=== PATIENT | female | born 2000 | race Caucasian/White ===

== ENCOUNTER 2022-02-21 20:32 | Emergency (ER) | payer OTHER, SELFPAY ==
[2022-02-21 21:33] VITALS: BP 114/54; PULSE 137; RESP 20; TEMP 37.2; O2SAT 97; BMI 39.5
--- NOTE | 2022-02-22 00:06 | CRLHL7_ITS ---
For Patients: As a result of the Cures Act, medical imaging exams and procedure reports are released immediately into your electronic medical record. You may view this report before your referring provider. If you have questions, please contact your health care provider. INDICATION: Cough, tachycardia TECHNIQUE: Chest 2 views. COMPARISON: None FINDINGS: Cardiovascular and mediastinum: Heart size and vasculature are normal in caliber and appearance. Mediastinum is within normal limits. Lungs and pleural spaces: Lungs are clear. No sign of infiltrate or mass. No sign of pleural effusion. No pneumothorax. Bones and soft tissues: No significant findings. IMPRESSION: No sign of acute disease. Dictated by Kalina Zapien MD @ 02/22/2022 1:17:48 AM (Electronically Signed)
[2022-02-22 00:09] LABS: PCR FLU A POSITIVE PCR FLU A (Negative); PCR FLU B Negative PCR FLU B (Negative); PCR RSV Negative PCR RSV (Negative)
[2022-02-22 00:12] LABS: SARS PCR* Negative SARS-CoV-2 (Negative)
--- NOTE | 2022-02-22 00:36 | ED.GENADULT ---
HPI - General Adult General Time Seen by Provider: 00:36 Date Seen: 02/22/22 Chief complaint: Cough Stated complaint: Possible Covid or Flu Time Seen by Provider: 02/22/22 00:22 Source: patient and RN notes reviewed Mode of arrival: ambulatory Limitations: no limitations History of Present Illness HPI narrative: 21-year-old female who comes in with cough, body aches, sinus congestion starting yesterday. She has not taken anything for her symptoms. She came in because her work wanted her to get tested for influenza and COVID. No nausea, vomiting, diarrhea. Related Data Allergies Allergy/AdvReac Type Severity Reaction Status Date / Time No Known Drug Allergies Allergy Verified 11/26/21 13:54 Review of Systems Status of ROS: Reports: 10 or more systems reviewed and unremarkable except as noted in History and below Exam Const: Vital Signs, click to edit/add: Vital Signs - 24 hr 02/21/22 21:33 Temperature 99.0 F Pulse Rate [Pulse Oximeter] 137 H Respiratory Rate 20 Blood Pressure [Ri ght Upper Arm] 114/54 L Pulse Oximetry 97 Oxygen Delivery Me thod Room Air Documenting provider has reviewed patient's vital signs: yes Common normals: no apparent distress, oriented x3, alert and well nourished HENMT: Common normals: normocephalic, head/scalp atraumatic, external ears normal and external nose normal Head and scalp: normocephalic and atraumatic Nose: external nose normal External ear: external ears normal Eye: Common normals: PERRL and conjunctivae normal Conjunctiva: conjunctiva(e) normal Pupil: PERRL Neck & C-Spine: Common normals: full ROM, no lymphadenopathy and supple Chest: Common normals: palpation of chest normal Resp: Common normals: normal respiratory effort and clear to auscultation bilaterally Auscultation: clear to auscultation bilaterally Cardio: Common normals: regular rate, regular rhythm and no murmurs Rate: regular rate Rhythm: regular rhythm GI: Common normals: Normal to inspection, nondistended, normoactive bowel sounds present, soft to palpation and non-tender Palpation: soft : Common normals: no CVA tenderness Bladder/kidney exam: no CVA tenderness Back & Pelvis: Common normals: no CVA tenderness and thoracic and lumbar spine normal to inspection Extremity: Common normals: normal to inspection, full ROM and no pedal edema Neuro: Common normals: oriented x3, CN's II-XII intact bilaterally and no focal motor deficits Sensorium/orientation: alert Psych: Common normals: mental status grossly normal Skin: Common normals: no rashes or lesions noted General skin exam: no rashes or lesions noted Course Course Hospital Course: Patient seen examined, prior records are reviewed. Patient presents today with upper respiratory symptoms and body aches, starting yesterday. On initial triage pulse is recorded at 137, however in the room she is in the 90s. Lungs are clear with no hypoxia. Influenza a positive. Discussed symptomatic treatment for this, patient is stable for discharge. Vital Signs Vital signs: Initial Vital Signs Temperature 99.0 F 02/21/22 21:33 Temperature Source Temporal Artery Scan 02/21/22 21:33 Pulse Rate 137 H 02/21/22 21:33 Pulse Rhythm 02/21/22 21:33 Respiratory Rate 20 02/21/22 21:33 Blood Pressure 114/54 L 02/21/22 21:33 Blood Pressure Mean 74 02/21/22 21:33 Pulse Oximetry 97 02/21/22 21:33 Oxygen Delivery Method 02/21/22 21:33 Vital Signs Temperature 99.0 F 02/21/22 21:33 Pulse Rate 137 H 02/21/22 21:33 Respiratory Rate 20 02/21/22 21:33 Blood Pressure 114/54 L 02/21/22 21:33 Pulse Oximetry 97 02/21/22 21:33 Oxygen Delivery Method 02/21/22 21:33 Temperature 99.0 F 02/21/22 21:33 Pulse Rate 137 H 02/21/22 21:33 Respiratory Rate 20 02/21/22 21:33 Blood Pressure 114/54 L 02/21/22 21:33 Pulse Oximetry 97 02/21/22 21:33 Oxygen Delivery Method 02/21/22 21:33 Medical Decision Making Medical Records Medical records reviewed: Yes I reviewed the patient's medical records Lab Data Lab results reviewed: Yes I reviewed the patient's lab results Labs: Lab Results 02/21/22 Range/Units 23:26 SARS-CoV-2 (PCR) Negative SARS-CoV-2 (Negative) Influenza Type A (PCR) POSITIVE PCR FLU A A (Negative) Influenza Type B (PCR) Negative PCR FLU B (Negative) RSV (PCR) Negative PCR RSV (Negative) Discharge Plan Discharge Clinical Impression: Influenza A Patient Disposition: Home, Self-Care Condition: Stable Instructions: Influenza (DC) Additional Instructions: Tylenol and ibuprofen for pain, fever Make sure your getting plenty of fluids and plenty of rest Activity Level: No Restrictions Discharge Diet: Regular Follow Up/Referrals: Provider,Not a Local [Primary Care Provider] - Stand Alone Forms: [facility] Info Instructions
[2022-02-22 00:50] VITALS: BP 125/78; PULSE 91; RESP 20; TEMP 37.2; O2SAT 97
[2022-02-22 00:51] VITALS: BP 125/78; PULSE 91; RESP 20; TEMP 37.2
== END 2022-02-22 00:51 | disposition home or self-care (01) ==
LOC: ED 02-22 00:48
PROVIDERS: Emergency Provider Family Medicine; PCP Pediatrics
DX: J09.X2 Influenza due to identified novel influenza A virus with other respiratory manifestations (principal)
CPT/HCPCS: 71046; 87502; 87634; 87635; 99283; 99284

== ENCOUNTER 2023-06-20 18:13 | Emergency (ER) | payer OTHER, SELFPAY ==
[2023-06-20 18:21] VITALS: BP 126/57; PULSE 80; RESP 18; TEMP 36.6; O2SAT 95; BMI 37.2
--- NOTE | 2023-06-20 19:37 | ED.NURSE ---
patient left without signing refusal of services.
== END 2023-06-20 19:37 | disposition left against medical advice (07) ==
PROVIDERS: PCP Pediatrics
DX: Z53.21 Procedure and treatment not carried out due to patient leaving prior to being seen by health care provider (principal)

== ENCOUNTER 2024-01-06 18:48 | Emergency (ER) | payer SELFPAY ==
[2024-01-06 18:57] VITALS: BP 114/70; PULSE 89; RESP 20; TEMP 36.7; O2SAT 99; BMI 32.6
--- NOTE | 2024-01-06 19:20 | ED.SKABFB ---
HPI - Skin/Abscess/Foreign Bdy General Chief complaint: Skin/Abscess/Foreign Body Stated complaint: sores on back and right foot Time Seen by Provider: 01/06/24 18:52 History of Present Illness HPI narrative: This patient comes in with a cutaneous abscess in her right upper back that has been present for several days. She does not report any drainage but reports that it is become more painful. She also incidentally indicates a lump in the medial aspect of her right foot. She states that it bothers her if she walks for extended amount of time. She does not report any fevers and otherwise is in good health. Related Data Previous Rx's ?Medication ?Instructions ?Recorded cephalexin 500 mg capsule 500 mg PO TID 5 days #15 caps 01/06/24 Allergies Allergy/AdvReac Type Severity Reaction Status Date / Time No Known Drug Allergies Allergy Verified 01/06/24 18:59 Review of Systems Status of ROS: Reports: 10 or more systems reviewed and unremarkable except as noted in History and below Narrative: Constitutional: No fevers, no weight gain or loss. Eyes: No discharge. No vision changes. HENT: No congestion, no sore throat, no ear pain. Cardiovascular: No chest pain, no palpitations. Respiratory: No shortness of breath, no wheezes, no cough. Gastrointestinal: No abdominal pain, no vomiting, no diarrhea. Genitourinary: No dysuria, no hematuria. Musculoskeletal: Normal range of motion. Skin: No rashes, no pruritis. Cutaneous abscess in the right upper back. Neurological: No dizziness, weakness, sensory change, speech change. Endo/Heme/Allergies: No bruising or bleeding. No polydipsia. Pysch: no suicidality, no anxiety, no insomnia. All other systems reviewed and are negative. [facility] Medical History (Updated 01/06/24 @ 19:27 by Ruddy Constantino MD) OCD (obsessive compulsive disorder) ?F42.9 - Obsessive-compulsive disorder, unspecified (ICD-10) Menorrhagia ?N92.0 - Excessive and frequent menstruation with regular cycle (ICD-10) ADHD (attention deficit hyperactivity disorder) ?F90.9 - Attention-deficit hyperactivity disorder, unspecified type (ICD-10) Surgical History No significant past surgical history Social History Smoking Status: Never smoker Do you use any of these nicotine containing products: Vaping Products Second hand tobacco smoke exposure: No How often do you have a drink containing alcohol: never How often do you have six or more drinks on one occasion: Never AUDIT-C Alcohol total score: 0 Non-prescribed substance use: denies use Exam Narrative: Exam Narrative: Constitutional: Well-developed, well-nourished, no acute distress. HEENT: Normocephalic, atraumatic. Neck: Normal range of motion. Nontender. Supple. Heart: Regular. No murmurs. Normal rate. Intact distal pulses. Lungs: Clear to auscultation. No chest discomfort. No wheezes, rhonchi, or rales. Abdomen: Normal bowel sounds. Nontender. No rebound tenderness. Genitalia: Deferred. Back: No midline tenderness. Normal range of motion. Extremities: Normal range of motion. No injury. Right foot has a well-defined cystic structure on the medial aspect which is about 1.5 cm in diameter. It is movable, not fixed. Skin: Intact. No rash. Warm. No erythema or pallor. Right upper back has a area of erythema with mild swelling typical of a cutaneous abscess. It measures about 2.5 cm in diameter. Neurologic: No altered sensation. No weakness. Alert and oriented. Psychiatric: No suicidality. No anxiety or depression. No insomnia. Nursing notes and vitals signs are reviewed. Const: Vital Signs, click to edit/add: Vital Signs - 24 hr 01/06/24 18:57 Temperature 98.0 F Pulse Rate [Right Pulse Oximeter] 89 Respiratory Rate 20 Blood Pressure [Ri ght Upper Arm] 114/70 Pulse Oximetry 99 Oxygen Delivery Me thod Room Air Course Vital Signs Vital signs: Initial Vital Signs Temperature 98.0 F 01/06/24 18:57 Temperature Source Temporal Artery Scan 01/06/24 18:57 Pulse Rate 89 01/06/24 18:57 Respiratory Rate 20 01/06/24 18:57 Blood Pressure 114/70 01/06/24 18:57 Blood Pressure Mean 84 01/06/24 18:57 Blood Pressure Position Sitting 01/06/24 18:57 Pulse Oximetry 99 01/06/24 18:57 Oxygen Delivery Method Room Air 01/06/24 18:57 Vital Signs Temperature 98.0 F 01/06/24 18:57 Pulse Rate 89 01/06/24 18:57 Respiratory Rate 20 01/06/24 18:57 Blood Pressure 114/70 01/06/24 18:57 Pulse Oximetry 99 01/06/24 18:57 Oxygen Delivery Method Room Air 01/06/24 18:57 Temperature 98.0 F 01/06/24 18:57 Pulse Rate 89 01/06/24 18:57 Respiratory Rate 20 01/06/24 18:57 Blood Pressure 114/70 01/06/24 18:57 Pulse Oximetry 99 01/06/24 18:57 Oxygen Delivery Method Room Air 01/06/24 18:57 MDM - Skin/Abscess/Foreign Bdy MDM Narrative Medical decision making narrative: I used bedside ultrasound to evaluate these 2 lesions. The right upper back has a small amount of fluid but it is appearing to be loculated and my assessment would be that it may not yield a lot of fluid if attempting to drain it. The right foot has a cystic structure that would benefit from drainage. The patient agreed to this. After cleansing the area of her right foot with alcohol swab I used lidocaine with epinephrine to anesthetize the immediate area where I used a 18 gauge needle to inject into the cystic structure. I drained approximately 1.5 mL of fluid to completely flatten it. The patient did receive a prescription for 5 days of Keflex to treat her cutaneous abscess on her back. Discharge Plan Discharge Clinical Impression: Abscess of skin or subcutaneous tissue Patient Disposition: Home, Self-Care Condition: Improved Additional Instructions: Take medication as prescribed. Follow up with MD or return if worsening. Prescriptions: New cephalexin 500 mg capsule 500 mg PO TID 5 Days Qty: 15 0RF Follow Up/Referrals: Manoj Maki MD [Primary Care Provider] - Stand Alone [facility] Inst[facility] Procedures Ultrasound Other exam #1: Anatomical areas examined: Cutaneous abscess in the right upper back. A cystic structure on the righ Indications: Assess for opportunity to drain either of these structures. Exam type: focused emergency ultrasound Description/findings: Right upper back has a cutaneous abscess with small amount of fluid that is not sizable enough for drainage. The right foot on the inner aspect has a cystic structure that is well-defined and full of fluid. This structure would benefit from drainage. Impression: Cutaneous abscess on the back and a cystic structure on the right foot.
[2024-01-06 20:01] VITALS: BP 118/68; PULSE 85; RESP 20; TEMP 36.7; O2SAT 99
[2024-01-06 20:02] VITALS: BP 118/68; PULSE 85; RESP 20; TEMP 36.7
== END 2024-01-06 20:02 | disposition home or self-care (01) ==
PROVIDERS: Emergency Provider Emergency Medicine Emergency Medical Services; PCP Pediatrics
DX: L02.212 Cutaneous abscess of back [any part, except buttock and flank] (principal)
CPT/HCPCS: 10060; 76705; 99283; 99284

== ENCOUNTER 2024-02-01 22:45 | Emergency (ER) | payer OTHER, SELFPAY ==
--- NOTE | 2024-02-01 22:53 | CRLHL7_ITS ---
For Patients: As a result of the Century Cures Act, medical imaging exams and procedure reports are released immediately into your electronic medical record. You may view this report before your referring provider. If you have questions, please contact your health care provider. INDICATION: Trauma. TECHNIQUE: Right hand radiographs, 3 views. COMPARISON: None. FINDINGS: No acute fractures or dislocation. The joint spaces are preserved. The scaphoid appears intact. No significant soft tissue edema or radiopaque foreign bodies. IMPRESSION: No acute fractures or dislocation. Dictated by Paul Strickland MD @ 02/01/2024 11:25:21 PM (Electronically Signed)
[2024-02-01 22:54] VITALS: BP 118/80; PULSE 89; RESP 18; TEMP 36.7; O2SAT 99; BMI 30.7
--- NOTE | 2024-02-01 23:54 | ED_ITS ---
HPI - General Adult General Date Seen: 02/01/24 Chief complaint: Extremity Pain/Injury, Upper Stated complaint: slammed R hand in car door Time Seen by Provider: 02/01/24 23:54 History of Present Illness HPI narrative: This is a 23 he 3-year-old female presenting to the ER today with her boyfriend for evaluation of an injury to her right hand and thumb. She was at work this evening. She was closing the door under truck. The door was sees by strong shree of wind and then slammed close before she get get her and of the way. She describes that her thumb was hyperextended and ever since then she has had pain involving the entire right thumb into the thenar eminence and into the radial border of the wrist. She was told by her employer to come to the ER to get evaluated, get a splint, and get a work note. The injury happened at about 3:00 p.m. this afternoon but she did get off work until 5. She then went to another ER with another family member for a different problem and then presented to the ER here in [place] later this evening. She is having pain in her thumb and thenar eminence and wrist. No numbness. She is not able to move her thumb because she has pain with attempted movement. No swelling. No bruising. Related Data Home Medications ?Medication ?Instructions ?Recorded ?Confirmed No Known Home Medications 02/01/24 02/01/24 Allergies Allergy/AdvReac Type Severity Reaction Status Date / Time No Known Drug Allergies Allergy Verified 02/01/24 22:56 [facility] Medical History (Updated 02/02/24 @ 00:09 by Marty Keenan MD) OCD (obsessive compulsive disorder) ?F42.9 - Obsessive-compulsive disorder, unspecified (ICD-10) Menorrhagia ?N92.0 - Excessive and frequent menstruation with regular cycle (ICD-10) ADHD (attention deficit hyperactivity disorder) ?F90.9 - Attention-deficit hyperactivity disorder, unspecified type (ICD-10) Surgical History No significant past surgical history Social History Smoking Status: Never smoker Do you use any of these nicotine containing products: Vaping Products Second hand tobacco smoke exposure: No How often do you have a drink containing alcohol: never How often do you have six or more drinks on one occasion: Never AUDIT-C Alcohol total score: 0 Non-prescribed substance use: denies use Exam Narrative: Exam Narrative: Constitutional: Appears well-developed and well-nourished. Active. Non-toxic appearing. Polite HENT: Head: Atraumatic. No signs of injury. Nose: No nasal discharge. Mouth/Throat: Mucous membranes are moist. Pharynx is normal. Tonsils symmetric. Uvula midline. Airway patent. Eyes: Conjunctivae normal and EOM are normal. Pupils are equal, round, and reactive to light. Right eye exhibits no discharge. Left eye exhibits no discharge. No icterus. Neck: Normal range of motion. Neck supple. No adenopathy. No stridor. Cardiovascular: Normal rate and regular rhythm. Brisk capillary refill in her injured thumb and in her fingers. Pulmonary/Chest: Effort normal. No stridor. No respiratory distress. Musculoskeletal: Normal except for her right hand and wrist. Right upper extremity: Clavicle, shoulder, humerus, biceps, triceps are nontender. Elbows nontender. Forearm is nontender. Normal pronation and supination. Wrist: Normal inspection. No bruising. No swelling. No snuffbox tenderness. She is diffusely tender over the film including the thenar eminence, MCP, PIP, and the phalanges of the thumb. No swelling. She is not able to range her thumb especially the MCP because of pain. Difficult to localize any exact source of pain in her hand. Bed she does have a lot of tenderness when I try to range her MCP joint and stress her ulnar collateral ligament. Suspicious for possible ski or some with the described thumb hyperextension mechanism. Body the hand, 2nd, 3rd, 4th, 5th digits are nontender.. Neurological: Alert. Normal strength. No cranial nerve deficit or sensory deficit. Coordination normal. GCS eye subscore is 4. GCS verbal subscore is 5. GCS motor subscore is 6. Skin: Skin is warm. No rash noted. Const: Vital Signs, click to edit/add: Vital Signs - 24 hr 02/01/24 22:54 02/02/24 00:21 Temperature 98.1 F 98.1 F Pulse Rate [Right Pulse Oximeter] 89 81 Respiratory Rate 18 18 Blood Pressure [Ri ght Upper Arm] 118/80 121/79 Pulse Oximetry 99 99 Oxygen Delivery Me thod Room Air Room Air Course Vital Signs Vital signs: Initial Vital Signs Temperature 98.1 F 02/01/24 22:54 Temperature Source Temporal Artery Scan 02/01/24 22:54 Pulse Rate 89 02/01/24 22:54 Respiratory Rate 18 02/01/24 22:54 Blood Pressure 118/80 02/01/24 22:54 Blood Pressure Mean 92 02/01/24 22:54 Blood Pressure Position Sitting 02/01/24 22:54 Pulse Oximetry 99 02/01/24 22:54 Oxygen Delivery Method Room Air 02/01/24 22:54 Vital Signs Temperature 98.1 F 02/01/24 22:54 Pulse Rate 89 02/01/24 22:54 Respiratory Rate 18 02/01/24 22:54 Blood Pressure 118/80 02/01/24 22:54 Pulse Oximetry 99 02/01/24 22:54 Oxygen Delivery Method Room Air 02/01/24 22:54 Temperature 98.1 F 02/02/24 00:21 Pulse Rate 81 02/02/24 00:21 Respiratory Rate 18 02/02/24 00:21 Blood Pressure 121/79 02/02/24 00:21 Pulse Oximetry 99 02/02/24 00:21 Oxygen Delivery Method Room Air 02/02/24 00:21 Medical Decision Making MDM Narrative Medical decision making narrative: 23-year-old previously healthy female presenting with a work related injury to right hand especially the right thumb and right wrist that occurred when she got her hand slammed in a truck door after the when took the door. She describes a hyperextension injury to the thumb. Clinical exam reveals diffuse tenderness. X-rays are negative for any acute fracture of the thumb or hand. Clinically I suspect she may have an ulnar collateral ligament to the MCP joint of the thumb, i.e. ski or some. Differential would also include other thumb sprain or contusion. Also consider possible nondisplaced fracture through the scaphoid bone. However pain really seems to me most localized to her thumb. Patient is placed into a thumb spica splint (prefabricated Velcro splint) here in the ER and will keep her thumb immobilized. Discussed with the patient that if this is simply a bruise it should heal over the next couple of days and if it is completely improved and no further treatment is necessary. However if she is not completely improved within 3-5 days she should recheck with [facility] for re-evaluation. She understands the need for follow-up. She is provided with a work note. Discussed analgesia. She will use ice, rest. Juax-[id number] medications. Declines opiate analgesics. Comfortable plan for discharge home with her boyfriend. Imaging Data XR hand: Attestation: I have reviewed the pertinent imaging results. My impression: no acute fracture Radiologist's impression: IMPRESSION: No acute fractures or dislocation. Discharge Plan Discharge Clinical Impression: Hyperextension injury of thumb Instructions: Skier's Thumb (ED) Additional Instructions: As we discussed, your x-rays look good tonight. No signs of any broken bones. However, I am concerned that you may have injured the ligaments in the joint at the base of your thumb. Please wear the thumb and wrist brace for the next 3-5 days unless you are completely improved. If you are not completely improved within 3-5 days, continue to protect your thumb in the brace and follow-up with the orthopedic clinic for re-evaluation. To make an ER follow-up appointment for the [facility], you can call [phone]. For pain you can use ibuprofen 600 mg or acetaminophen 1000 mg per dose every 6 hours as needed. You could also use an ice pack for 15 minutes every 3-4 hours to help reduce pain and swelling. Avoid activities that require grabbing or pinching with her right hand and thumb until you are completely healed or cleared to return to full duty by your orthopedic doctors. Prescriptions: No Action No Known Home Medications Follow Up/Referrals: Manoj Maki MD [Primary Care Provider] - Stand Alone Forms: [employer] Info Instructions
[2024-02-02 00:21] VITALS: BP 121/79; PULSE 81; RESP 18; TEMP 36.7; O2SAT 99
== END 2024-02-02 00:21 | disposition home or self-care (01) ==
PROVIDERS: Emergency Provider Emergency Medicine; PCP Pediatrics
DX: S66.201A Unspecified injury of extensor muscle, fascia and tendon of right thumb at wrist and hand level, initial encounter (principal); W23.0XXA Caught, crushed, jammed, or pinched between moving objects, initial encounter
CPT/HCPCS: 29125; 73130; 99282; 99283

== ENCOUNTER 2024-03-05 12:46 | Emergency (ER) | payer SELFPAY ==
[2024-03-05 12:51] VITALS: BP 113/70; PULSE 92; RESP 16; TEMP 35.8; O2SAT 96; BMI 32.6
--- NOTE | 2024-03-05 15:08 | ED_ITS ---
HPI - General Adult General Date Seen: 03/05/24 Chief complaint: Nausea/Vomiting Stated complaint: vomiting/diarrhea Time Seen by Provider: 03/05/24 15:07 History of Present Illness HPI narrative: 23-year-old female with a history of ADHD, OCD, recent thumb injury, presenting to the ER today with vomiting and diarrhea. Symptoms began yesterday with fairly abrupt onset of nausea and stomach ache. Yesterday around lunch she started having watery, yellowish vomiting and yellow diarrhea.. She has had multiple episodes of forceful emesis. She threw up at least 12 times yesterday. The for several emesis is were food. Then she had a few illnesses that were blood tinged. The last several emesis were back to being water and stomach acid. She had multiple episodes of yellow watery diarrhea. This morning she is having more nausea and vomiting but no blood. She is not having any fever. No recent travel. No recent antibiotics. No known suspicious food exposure. Her boyfriend is with her and is not sick. Related Data Previous Rx's ?Medication ?Instructions ?Recorded loperamide 2 mg capsule (Imodium 2 mg PO Q4H PRN loose stool #10 03/05/24 A-D) caps ondansetron 4 mg disintegrating 4 mg PO Q8H PRN nausea and 03/05/24 tablet vomiting #10 tabs Allergies Allergy/AdvReac Type Severity Reaction Status Date / Time Penicillins Allergy Severe throat Verified 03/05/24 12:58 swelling shut milkweed Allergy Severe swelling Uncoded 03/05/24 12:58 every where PFSH PFSH Medical History (Updated 03/05/24 @ 16:42 by Marty Keenan MD) OCD (obsessive compulsive disorder) ?F42.9 - Obsessive-compulsive disorder, unspecified (ICD-10) Menorrhagia ?N92.0 - Excessive and frequent menstruation with regular cycle (ICD-10) ADHD (attention deficit hyperactivity disorder) ?F90.9 - Attention-deficit hyperactivity disorder, unspecified type (ICD-10) Surgical History No significant past surgical history Social History Smoking Status: Never smoker Do you use any of these nicotine containing products: Vaping Products Second hand tobacco smoke exposure: No How often do you have a drink containing alcohol: never How often do you have six or more drinks on one occasion: Never AUDIT-C Alcohol total score: 0 Non-prescribed substance use: denies use Exam Narrative: Exam Narrative: Constitutional: Appears well-developed and well-nourished. Alert. Conversant. Non toxic. HENT: Head: Atraumatic. Nose: Nose normal. Mouth/Throat: Oral mucosa is clear and dry but not desiccated or cracked. no trismus. Pharynx normal. Tonsils symmetric. No tonsillar enlargement, erythema, or exudate. Eyes: Conjunctivae normal. EOM normal. Pupils equal, round, and reactive to light. No scleral icterus. Neck: Normal range of motion. Neck supple. No tracheal deviation present. Cardiovascular: Normal rate, regular rhythm. No gallop. No friction rub. No murmur heard. Symmetric radial artery pulses Pulmonary/Chest: Effort normal. No stridor. No respiratory distress. No wheezes. No rales. No rhonchi . No tenderness. Abdominal: Soft. Bowel sounds normal. No distension. No mass. No tenderness. No rebound. No guarding. No HSM Musculoskeletal: RUE: Normal range of motion. No deformity LUE: Normal range of motion. No deformity RLE: Normal range of motion. No edema. No deformity LLE: Normal range of motion. No edema. No deformity Neurological: Alert and oriented to person, place, and time. Normal strength. CN II-VII intact. No sensory deficit. GCS eye subscore is 4. GCS verbal subscore is 5. GCS motor subscore is 6. Normal coordination Skin: Skin is warm and dry. No rash noted. No pallor. Normal capillary refill. Psychiatric: Normal mood. Normal affect. Const: Vital Signs, click to edit/add: Vital Signs - 24 hr 03/05/24 12:51 Temperature 96.4 F L Pulse Rate [Pulse Oximeter] 92 Respiratory Rate 16 Blood Pressure [Ri ght Upper Arm] 113/70 Pulse Oximetry 96 Oxygen Delivery Me thod Room Air Course Course ED Course: Recheck nausea resolved after Zofran. Tolerating liquid. Says she is ?starving. ?. Still had a couple more liquidy diarrhea is but is comfortable with that. She knows it will stop. She is not having any abdominal pain. Vital Signs Vital signs: Initial Vital Signs Temperature 96.4 F L 03/05/24 12:51 Temperature Source Temporal Artery Scan 03/05/24 12:51 Pulse Rate 92 03/05/24 12:51 Respiratory Rate 16 03/05/24 12:51 Blood Pressure 113/70 03/05/24 12:51 Blood Pressure Mean 84 03/05/24 12:51 Blood Pressure Position Sitting 03/05/24 12:51 Pulse Oximetry 96 03/05/24 12:51 Oxygen Delivery Method Room Air 03/05/24 12:51 Vital Signs Temperature 96.4 F L 03/05/24 12:51 Pulse Rate 92 03/05/24 12:51 Respiratory Rate 16 03/05/24 12:51 Blood Pressure 113/70 03/05/24 12:51 Pulse Oximetry 96 03/05/24 12:51 Oxygen Delivery Method Room Air 03/05/24 12:51 Temperature 96.4 F L 03/05/24 12:51 Pulse Rate 92 03/05/24 12:51 Respiratory Rate 16 03/05/24 12:51 Blood Pressure 113/70 03/05/24 12:51 Pulse Oximetry 96 03/05/24 12:51 Oxygen Delivery Method Room Air 03/05/24 12:51 Medications Administered Medications: Generic Name Dose Route Start Last Admin Trade Name Freq PRN Reason Stop Dose Admin Loperamide HCl 4 mg 03/05/24 15:19 03/05/24 15:44 Loperamide Hcl 2 Mg Capsule PO 4 mg ONCE PRN Administration Discontinued Medications Generic Name Dose Route Start Last Admin Trade Name Freq PRN Reason Stop Dose Admin Ondansetron HCl 4 mg 03/05/24 15:19 03/05/24 15:44 Ondansetron Odt 4 Mg Tab PO 03/05/24 15:20 4 mg ONCE ONE Administration Medical Decision Making [facility] Narrative Medical decision making narrative: This patient presents with vomiting and diarrhea that began yesterday and persisted through this morning.. The patient's symptoms and exam could be consistent with a viral GI infection. There is no high fever, severe pain, bilious or bloody emesis, blood or mucous in the stool, severe abdominal pain, or other concerning signs for a bacterial infection. No recent travel or high risk exposure for baceraial pathogen. No recent antibiotics or risk factors for C. diff. on exam, I don't see any evidence for appendicitis, bowel obstruction, abscess, bowel perforation, or other surgical emergency. She did have a couple of episode of blood-tinged emesis yesterday which I think are probably from a Tereza-Shoemaker tear from her initial episodes of forceful vomiting. She has not had any subsequent bloody vomiting yesterday evening or this morning. We discussed possible labs, but the patient declined. After meds given the patient is feeling better. At this point, the patient is non-septic appearing and well hydrated.I think the patient can be managed as an outpatient. We have discussed oral rehydration strategies. They understand and can perform the needed interventions at home. I have provided a prescription for antiemetics to facilitate oral hydration (Zofran ODT, Imodium). We have discussed the signs and symptoms of worsening dehydration. They understand the need for immediate reevaluation if any of these symptoms occur. They are also directed to obtain close outpatient follow up within 2-3 days. Discharge Plan Discharge Clinical Impression: Nausea, vomiting and diarrhea, Acute dehydration, Tereza-Shoemaker tear Patient Disposition: Home, Self-Care Condition: Stable Instructions: Acute Nausea and Vomiting (DC) Additional Instructions: As we discussed, we suspect that you vomiting and diarrhea are probably caused by a GI infection. This should get better over the next 24-48 hours. You can use the Zofran for nausea every 8 hours as needed. You can use Imodium for diarrhea every 4 hours as needed. If you have worsening or uncontrolled nausea vomiting, molar bloody vomit, high fever, abdominal pain, bloody or mucousy stool, or are if you are getting worse in any way, return to the ER right away. If you are not completely improved within 48 hours, please come back to the ER or recheck with your doctor. Prescriptions: New ondansetron 4 mg tablet,disintegrating 4 mg PO Q8H PRN (Reason: nausea and vomiting) Qty: 10 0RF loperamide [Imodium A-D] 2 mg capsule 2 mg PO Q4H PRN (Reason: loose stool) Qty: 10 0RF Rx Instructions: administer after each loose stool until symptoms controlled; do not exceed 8 mg per 24 hrs Follow Up/Referrals: Manoj Maki MD [Primary Care Provider] - Stand Alone Forms: [employer] Info Instructions
[2024-03-05] MEDS: ONDANSETRON ODT 4 MG TAB PO (15:44)
[2024-03-05] MEDS: LOPERAMIDE HCL 2 MG CAPSULE 4 MG PO (15:44)
== END 2024-03-05 16:55 | disposition home or self-care (01) ==
PROVIDERS: Emergency Provider Emergency Medicine; PCP Pediatrics
DX: R11.10 Vomiting, unspecified (principal); R19.7 Diarrhea, unspecified; K22.6 Gastro-esophageal laceration-hemorrhage syndrome
CPT/HCPCS: 99283; A9270

== ENCOUNTER 2024-03-06 12:56 | Emergency (ER) | payer SELFPAY ==
[2024-03-06 13:00] VITALS: BP 112/73; PULSE 82; RESP 16; TEMP 36.1; O2SAT 98; BMI 32.6
--- NOTE | 2024-03-06 13:33 | ED_ITS ---
HPI - General Adult General Date Seen: 03/06/24 Chief complaint: Nausea/Vomiting Stated complaint: Vomiting, unable to eat, dizziness Time Seen by Provider: 03/06/24 12:59 Source: patient Mode of arrival: ambulatory Limitations: no limitations History of Present Illness HPI narrative: Patient is a 23-year-old who developed vomiting and diarrhea, multiple episodes starting yesterday. She was seen here, was given Zofran and Imodium, but declined IV or labs yesterday. She says she has been taking the medicines but continues to have problems with vomiting and watery diarrhea. She notes upper abdominal pain, her mom who is here with her is worried that she might have gallbladder disease as she says this is how her gallbladder disease presented when she had her gallbladder taken out. Patient denies fevers or chills, no bloody stools, did have some small bloody emesis initially but that has resolved. No surgical history, denies other medical history. Related Data Previous Rx's ?Medication ?Instructions ?Recorded loperamide 2 mg capsule (Imodium 2 mg PO Q4H PRN loose stool #10 03/05/24 A-D) caps ondansetron 4 mg disintegrating 4 mg PO Q8H PRN nausea and 03/05/24 tablet vomiting #10 tabs metoclopramide HCl 10 mg tablet 10 mg PO Q6H PRN nausea and 03/06/24 (Reglan) vomiting #10 tabs Allergies Allergy/AdvReac Type Severity Reaction Status Date / Time Penicillins Allergy Severe throat Verified 03/06/24 13:00 swelling shut milkweed Allergy Severe swelling Uncoded 03/05/24 12:58 every where Review of Systems Status of ROS: Reports: 10 or more systems reviewed and unremarkable except as noted in History and below [facility] Medical History OCD (obsessive compulsive disorder) ?F42.9 - Obsessive-compulsive disorder, unspecified (ICD-10) Menorrhagia ?N92.0 - Excessive and frequent menstruation with regular cycle (ICD-10) ADHD (attention deficit hyperactivity disorder) ?F90.9 - Attention-deficit hyperactivity disorder, unspecified type (ICD-10) Surgical History No significant past surgical history Social History Smoking Status: Never smoker Do you use any of these nicotine containing products: Vaping Products Second hand tobacco smoke exposure: No How often do you have a drink containing alcohol: monthly or less How often do you have six or more drinks on one occasion: Never AUDIT-C Alcohol total score: 1 Non-prescribed substance use: denies use Exam Narrative: Exam Narrative: Vital signs reviewed In general, alert, nontoxic young woman. Looks comfortable. Head: Normocephalic, atraumatic. Eyes: Sclera clear. Pupils equal and reactive. ENT: Mucous membranes are little dry. Neck: Supple without adenopathy. Heart: Regular rate and rhythm without murmur. Lungs: Clear. No increased work of breathing, crackles or wheezes. Abdomen: Abdomen is obese, soft. Nontender to palpation, negative Dorantes sign. Extremities: Well perfused, pulses intact. No significant edema. Neurologic: Alert, conversant. Speech fluent, face symmetric. Moves all extremities equally. Skin: Warm, dry well perfused. Affect: Normal. Const: Vital Signs, click to edit/add: Vital Signs - 24 hr 03/06/24 13:00 03/06/24 16:25 Temperature 97.0 F L 97.5 F L Pulse Rate [Pulse Oximeter] 82 76 Respiratory Rate 16 18 Blood Pressure [Ri ght Upper Arm] 112/73 113/77 Pulse Oximetry 98 100 Oxygen Delivery Me thod Room Air Room Air Documenting provider has reviewed patient's vital signs: yes Course Course ED Course: We will place an IV today, give some normal saline and Reglan. Her abdominal exam is benign, she does not have any right upper quadrant tenderness but does note upper abdominal pain. I looked with the bedside ultrasound, she does have gallstones, I do not see wall thickening. Recommended to mom that we see how labs look and see how she is feeling after treatment. She has a negative sonographic Dorantes's. Would consider formal right upper quadrant ultrasound if labs are concerning or symptoms are not improving with treatment here. CBC showed a normal white blood cell count. Hemoglobin was 12.9. There was a delay on chemistries secondary to the chemistry machine being down, so I elected just to proceed with ultrasound to evaluate the gallbladder rather than waiting for labs as it had been a couple of hours without progress. Formal ultrasound read by Radiology agrees with my assessment of gallstones without evidence of cholecystitis. She is feeling well, she has not had any vomiting or diarrhea since arriving here. I think it is reasonable to let her go home. I prescribed Reglan to try instead of the Zofran since she says she has been vomiting despite use of Zofran. Clear liquids today, advance diet as able. Reviewed with patient and her mom that I do not think these current symptoms are related to her gallstones, I think that is an incidental finding. We did review gallstones in general, what to look for in terms of biliary colic, cholecystitis. Return as needed for worsening pain, fevers, or other worsening symptoms. Otherwise, see primary care for other concerns. Chemistries did start coming back after her discharge. Her electrolytes are normal, BUN 6, creatinine 0.6. LFTs are normal, lipase is 81. CRP was mildly elevated at 1.8. Overall, labs are non concerning. Plan as outlined above. Vital Signs Vital signs: Initial Vital Signs Temperature 97.0 F L 03/06/24 13:00 Temperature Source Temporal Artery Scan 03/06/24 13:00 Pulse Rate 82 03/06/24 13:00 Respiratory Rate 16 03/06/24 13:00 Blood Pressure 112/73 03/06/24 13:00 Blood Pressure Mean 86 03/06/24 13:00 Blood Pressure Position Sitting 03/06/24 13:00 Pulse Oximetry 98 03/06/24 13:00 Oxygen Delivery Method Room Air 03/06/24 13:00 Vital Signs Temperature 97.0 F L 03/06/24 13:00 Pulse Rate 82 03/06/24 13:00 Respiratory Rate 16 03/06/24 13:00 Blood Pressure 112/73 03/06/24 13:00 Pulse Oximetry 98 03/06/24 13:00 Oxygen Delivery Method Room Air 03/06/24 13:00 Temperature 97.5 F L 03/06/24 16:25 Pulse Rate 76 03/06/24 16:25 Respiratory Rate 18 03/06/24 16:25 Blood Pressure 113/77 03/06/24 16:25 Pulse Oximetry 100 03/06/24 16:25 Oxygen Delivery Method Room Air 03/06/24 16:25 Medications Administered Medications: Discontinued Medications Generic Name Dose Route Start Last Admin Trade Name Amparo PRN Reason Stop Dose Admin Sodium Chloride 500 mls @ 500 mls/hr 03/06/24 13:14 03/06/24 16:19 0.9 % Sodium Chloride 500 Ml IV 03/06/24 14:13 Infused .Q1H ONE Infusion Metoclopramide HCl 10 mg/ 102 mls @ 306 mls/hr 03/06/24 13:14 03/06/24 14:41 Sodium Chloride IVPB 03/06/24 13:15 Infused ONCE ONE Infusion Medical Decision Making Lab Data Labs: Lab Results 03/06/24 Range/Units 13:50 WBC 7.73 (4.50-11.00) K/uL RBC 4.44 (4.00-5.20) m/uL Hgb 12.9 (12.0-16.0) gm/dL Hct 38.0 (33.0-51.0) % MCV 86 (80-100) fL MCH 29 (26-34) pg MCHC 34 (32-36) gm/dL RDW Coeff of Moises 12.5 (11.5-15.5) % Plt Count 304 (140-440) K/uL Neut % (Auto) 58.6 (42.0-72.0) % Lymph % (Auto) 29.8 (20-44) % [place] % (Auto) 9.4 (0.0-11.0) % Eos % (Auto) 1.7 (0.0-7.0) % Baso % (Auto) 0.4 (0.0-3.0) % Neut # (Auto) 4.53 (1.7-7.0) K/uL Lymph # (Auto) 2.30 (0.90-2.90) K/uL [place] # (Auto) 0.70 (0.00-0.90) K/UL Eos # (Auto) 0.13 (0.00-0.50) K/uL Baso # (Auto) 0.03 (0.00-0.30) K/uL Abs Immat Gran (auto) 0.01 (0.00-0.30) K/uL Imm/Tot Granulo (auto) 0.1 % Sodium 142 (135-149) mmol/L Potassium 3.7 (3.6-5.1) mmol/L Chloride 105 (96-114) mmol/L Carbon Dioxide 29 (20-32) mmol/L Anion Gap 8 (7-15) mEq/L BUN 6 (5-24) mg/dL Creatinine 0.6 (0.5-1.5) mg/dL Estimated Creat Clear 128.08 Estimated GFR 131 ml/min Glucose 87 (60-115) mg/dL Calcium 8.7 (8.4-10.6) mg/dL Total Bilirubin 0.4 (0.1-1.5) mg/dL Direct Bilirubin 0.4 (0.0-0.5) mg/dL AST 29 (12-35) U/L ALT 24 (4-35) U/L Alkaline Phosphatase 71 (40-150) U/L C-Reactive Protein 1.8 H (0.5-1.0) mg/dL Total Protein 7.4 (6.0-8.3) g/dL Albumin 4.1 (3.3-5.0) g/dL Lipase 81 (23-300) U/L Imaging Data US - abdomen: Attestation: I have reviewed the pertinent imaging results. Radiologist's impression: Patient: [facility] Facility: [facility] Site . Site : 2002 Study: US-Abdomen [facility]-03/06/2024 4:23:22 PM Ordering Physician: Radha Amaro Final Report: INDICATION: Nausea, vomiting abdominal pain TECHNIQUE: Ultrasound abdomen limited. Sonographic images of the right upper quadrant were obtained using hutchison-scale and color Doppler images. COMPARISON: None. FINDINGS: Liver: Normal in size and echotexture. No masses. No intrahepatic biliary dilatation. Gallbladder: Multiple gallbladder stones are present. No sign of gallbladder wall thickening or pericholecystic fluid. Common bile duct: 4 mm. Pancreas: Obscured by overlying parenchymal opacity. Right kidney: Normal in size. Normal echotexture and cortex. No masses, stones, or hydronephrosis. Vasculature: Proximal abdominal aorta and IVC are normal. IMPRESSION: Cholelithiasis without further evidence of cholecystitis. The remainder of the exam is unremarkable. Dictated by Felton Ybarra MD @ 03/06/2024 4:43:22 PM Discharge Plan Discharge Clinical Impression: Vomiting and diarrhea, Gallstones Patient Disposition: Home, Self-Care Condition: Improved Instructions: Acute Nausea and Vomiting (ED) Additional Instructions: Your ultrasound today shows small stones or sludge but no evidence of inflammation of the gallbladder. At this time, I do not suspect that your symptoms are related to her gallstones. If you start getting right upper abdominal pain after meals, particularly if they are fatty, this may indicate symptomatic gallstones and you should follow-up with a general surgeon to discuss. We will try different antiemetic. Clear liquid diet over the next 24 hours, advance as able. For severe worsening pain, high fevers, other worsening, return to the ER. Prescriptions: New metoclopramide HCl [Reglan] 10 mg tablet 10 mg PO Q6H PRN (Reason: nausea and vomiting) Qty: 10 0RF No Action ondansetron 4 mg tablet,disintegrating 4 mg PO Q8H PRN (Reason: nausea and vomiting) Qty: 10 0RF loperamide [Imodium A-D] 2 mg capsule 2 mg PO Q4H PRN (Reason: loose stool) Qty: 10 0RF Rx Instructions: administer after each loose stool until symptoms controlled; do not exceed 8 mg per 24 hrs Follow Up/Referrals: Manoj Maki MD [Primary Care Provider] - Stand Alone Forms: [employer] Info Instructions
[2024-03-06] MEDS: METOCLOPRAMIDE HCL 10 MG in 0.9 % SODIUM CHLORIDE 100 ml 100 ML 306 MG IVPB (14:13)
[2024-03-06] MEDS: 0.9 % SODIUM CHLORIDE 500 ML 500 ML IV (14:13)
[2024-03-06 14:49] LABS: Basophils Absolute Auto 0.03 K/uL (0.00-0.30); Basophils Percent Auto 0.4 % (0.0-3.0); Eosinophils Absolute Auto 0.13 K/uL (0.00-0.50); Eosinophils Percent Auto 1.7 % (0.0-7.0); Hemoglobin* 12.9 gm/dL (12.0-16.0); Immature Granulocytes Abs Auto 0.01 K/uL (0.00-0.30); Immature Granulocytes Pct Auto 0.1 %; Lymphocytes Percent Auto 29.8 % (20-44); Mean Corpuscular HGB Conc 34 gm/dL (32-36); Mean Corpuscular Hemoglobin 29 pg (26-34); Mean Corpuscular Volume 86 fL (80-100); Monocytes Percent Auto 9.4 % (0.0-11.0); Neutrophils Absolute Auto 4.53 K/uL (1.7-7.0); Neutrophils Percent Auto 58.6 % (42.0-72.0); Platelet Count* 304 K/uL (140-440); RDW Coefficient of Variation % 12.5 % (11.5-15.5); Red Blood Count 4.44 m/uL (4.00-5.20); White Blood Count* 7.73 K/uL (4.50-11.00)
[2024-03-06 14:51] LABS: Slide Review Reflex No
--- NOTE | 2024-03-06 15:29 | CRLHL7_ITS ---
For Patients: As a result of the Century Cures Act, medical imaging exams and procedure reports are released immediately into your electronic medical record. You may view this report before your referring provider. If you have questions, please contact your health care provider. INDICATION: Nausea, vomiting abdominal pain TECHNIQUE: Ultrasound abdomen limited. Sonographic images of the right upper quadrant were obtained using hutchison-scale and color Doppler images. COMPARISON: None. FINDINGS: Liver: Normal in size and echotexture. No masses. No intrahepatic biliary dilatation. Gallbladder: Multiple gallbladder stones are present. No sign of gallbladder wall thickening or pericholecystic fluid. Common bile duct: 4 mm. Pancreas: Obscured by overlying parenchymal opacity. Right kidney: Normal in size. Normal echotexture and cortex. No masses, stones, or hydronephrosis. Vasculature: Proximal abdominal aorta and IVC are normal. IMPRESSION: Cholelithiasis without further evidence of cholecystitis. The remainder of the exam is unremarkable. Dictated by Felton Ybarra MD @ 03/06/2024 4:43:22 PM (Electronically Signed)
[2024-03-06 16:25] VITALS: BP 113/77; PULSE 76; RESP 18; TEMP 36.4; O2SAT 100
[2024-03-06 17:16] LABS: Albumin* 4.1 g/dL (3.3-5.0); Chloride* 105 mmol/L (96-114); Potassium* 3.7 mmol/L (3.6-5.1); Sodium* 142 mmol/L (135-149)
[2024-03-06 17:19] LABS: Alanine Aminotransferase* 24 U/L (4-35); Alkaline Phosphatase* 71 U/L (40-150); Anion Gap 8 mEq/L (7-15); Aspartate Amino Transferase* 29 U/L (12-35); Bilirubin Direct* 0.4 mg/dL (0.0-0.5); Bilirubin Total* 0.4 mg/dL (0.1-1.5); Blood Urea Nitrogen* 6 mg/dL (5-24); Carbon Dioxide* 29 mmol/L (20-32); Creatinine* 0.6 mg/dL (0.5-1.5); Est. Creatinine Clearance* 128.08; Estimated Glomerular Filt Rate 131 ml/min; Total Protein* 7.4 g/dL (6.0-8.3)
[2024-03-06 17:20] LABS: Calcium* 8.7 mg/dL (8.4-10.6); Glucose* 87 mg/dL (60-115)
[2024-03-06 18:00] LABS: Lipase* 81 U/L (23-300)
[2024-03-06 18:04] LABS: C Reactive Protein* 1.8 mg/dL (0.5-1.0)
== END 2024-03-06 17:21 | disposition home or self-care (01) ==
PROVIDERS: Emergency Provider Emergency Medicine; PCP Pediatrics
DX: R11.10 Vomiting, unspecified (principal); R19.7 Diarrhea, unspecified; K85.10 Biliary acute pancreatitis without necrosis or infection
CPT/HCPCS: 36415; 76705; 80048; 80076; 83690; 85025; 86140; 96365; 99284; J2765; J7030

== ENCOUNTER 2024-06-18 13:50 | Emergency (ER) | payer SELFPAY ==
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
--- OUTSIDE RECORDS SUMMARY | 2024-06-18 13:52 | XMS_ITS | Encounter Summary ---
Author Organization [facility] Address [address] [place] [address] Care Team Providers Care Helper Coordinator Name Role Phone Xavier Maki MD Primary Care Provider [phone] Encounter Details Date Type Department Care Team (Latest Contact Info) Description 06/18/2024 Travel Social History Tobacco Use Types Packs/Day Years Used Date Smoking Tobacco: Never Assessed Comments No Sex and Gender Information Value Date Recorded Sex Assigned at Not on file Legal Sex Female 10:05 AM CDT Gender Identity Not on file Sexual Orientation Not on file documented as of this encounter Plan of Treatment Not on file documented as of this encounter Visit Diagnoses Not on filedocumented in this encounter Care Teams Helper Coordinator Relationship Specialty Start Date End Date Xavier Maki MD [facility] [address] [place] [address] PCP - General Pediatrics 06/18/24 documented as of this encounter
--- OUTSIDE RECORDS SUMMARY | 2024-06-18 13:53 | XMS_ITS | Clinical Summary ---
Author Organization [facility] Address [address] [place] [address] Care Team Providers Care Cable Splicer Apprentice Name Role Phone Xavier Maki MD Primary Care Provider [phone] Allergies Active Allergy Reactions Criticality Noted Date Comments Amoxicillin Swelling 06/18/2024 Aspirin Hives 06/18/2024 Penicillins Swelling 06/18/2024 Medications No known medications Encounters Date Type Department Care Team Description 06/18/2024 10:05 AM CDT Emergency [facility] Emergency Dept [address] [place] [address] 06/18/2024 Travel from Last 3 Months Social History Tobacco [...] Mass Index 33.64 06/18/2024 10:25 AM CDT Plan of Treatment Not on file Care Teams Cable Splicer Apprentice Relationship Specialty Start [place] [address] PCP - General Pediatrics 06/18/24
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
[2024-06-18 14:01] VITALS: BP 105/51; PULSE 91; RESP 16; TEMP 36.8; O2SAT 97; BMI 42.1
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
--- OUTSIDE RECORDS SUMMARY | 2024-06-18 15:11 | XMS_ITS | Clinical Summary ---
Author Organization [facility] Address [address] [place] [address] Care Team Providers Care Tour Counselor Name Role Phone Unavailable Primary Care Provider [...] for each transition of care or referral. [facility] Allergies Active Allergy Reactions Criticality Noted Date Comments Amoxicillin Anaphylaxis High 06/18/2024 Aspirin Hives High 06/18/2024 Penicillins Anaphylaxis High 06/18/2024 Medications methocarbamol (ROBAXIN) 500 MG tablet 1-2 tabs TID PRN for spasm/pain 24 Tablet 06/18/2024 Active Active Problems No known active problems Encounters Date Type Department Care Team Description 06/18/2024 9:20 AM CDT Office Visit [place] [id number] [facility] [address] [place] [id number] Austin Smith, SALES PROCESS MANAGER, WAREHOUSE DISTRIBUTION MANAGER Muscle spasm; Strain of neck muscle, initial [...]
--- OUTSIDE RECORDS SUMMARY | 2024-06-18 15:11 | XMS_ITS | Encounter Summary ---
Author Organization [facility] Address [address] [place] [address] Care Team Providers Care Corrugated Box Machine Operator Name Role Phone Xavier Maki MD Primary Care Provider [phone] Reason for Visit * Reason Comments Back Pain Encounter Details Date Type Department Care Team (Late st Contact Info) Description 06/18/2024 2:02 PM CDT - 06/18/2024 2:38 PM CDT Emergency [facility] Emergency Dept [address] [place] [id number] [phone] Uriel Ortiz MD [facility] [address] [facility] [address] [place], [place] [address] Discharge Disposition: Home or Self Care Social History Tobacco Use Types Packs/Day Years [...] on filedocumented in this encounter Care Teams Corrugated Box Machine Operator Relationship Specialty Start Date End Date Xavier Maki MD [facility] - [address] [address] PCP - General Pediatrics 06/18/24 documented as of this encounter
--- OUTSIDE RECORDS SUMMARY | 2024-06-18 15:11 | XMS_ITS | Encounter Summary ---
Author Organization [facility] Address [address] [place] [address] Care Team Providers Care Dialysis Clinical Manager Name Role Phone Xavier Maki MD Primary Care Provider [phone] Encounter Details Date Type Department Care Team [...] on filedocumented in this encounter Care Teams Dialysis Clinical Manager Relationship Specialty Start Date End Date Xavier Maki MD [facility] [address] [place] [address] PCP - General Pediatrics 06/18/24 documented as of this encounter
--- OUTSIDE RECORDS SUMMARY | 2024-06-18 15:11 | XMS_ITS | Clinical Summary ---
Author Organization [facility] Address [address] [place] [address] Care Team Providers Care Ict Teacher Name Role Phone Xavier Maki MD Primary Care Provider [phone] Allergies Active Allergy Reactions Criticality Noted Date Comments Amoxicillin Swelling 06/18/2024 Aspirin Hives 06/18/2024 Penicillins Swelling 06/18/2024 Medications No known medications Encounters Date Type Department Care Team Description 06/18/2024 2:02 PM CDT - 06/18/2024 2:38 PM CDT Emergency [facility] Emergency Dept [address] [place] [address] Uriel Ortiz MD Discharge Disposition: Home or Self Care 06/18/2024 Travel from Last 3 Months Social [...] of Treatment Not on file Care Teams Ict Teacher Relationship Specialty Start Date End Date Xavier Maki MD [address] [address] PCP - General Pediatrics 06/18/24
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
== END 2024-06-18 16:39 | disposition home or self-care (01) ==
PROVIDERS: Emergency Provider Emergency Medicine
DX: S13.4XXA Sprain of ligaments of cervical spine, initial encounter (principal); M54.9 Dorsalgia, unspecified; V43.52XA Car driver injured in collision with other type car in traffic accident, initial encounter; Y92.411 Interstate highway as the place of occurrence of the external cause; Y99.0 Civilian activity done for income or pay
CPT/HCPCS: 72040; 72070; 72100; 99283; 99284

== ENCOUNTER 2025-01-02 13:55 | Outpatient (CLI) | payer MEDICAID, SELFPAY | END 2025-01-02 13:56 | disposition home or self-care (01) | PROVIDERS: Visit Provider Family Medicine | DX: K52.9 Noninfective gastroenteritis and colitis, unspecified (principal) | CPT/HCPCS: 80053; 80061; 82784; 84443; 86231; 86258; 86364 ==

== ENCOUNTER 2025-01-03 10:16 | Outpatient (CLI) | payer MEDICAID, SELFPAY | END 2025-01-03 10:17 | disposition home or self-care (01) | LOC: NFLDREF 23:09 | PROVIDERS: Visit Provider Family Medicine | DX: K52.9 Noninfective gastroenteritis and colitis, unspecified (principal) | CPT/HCPCS: 87045; 87046; 87177; 87209; 87338; 87427; 87493; 87505 ==